=== PATIENT | female | born 1945 | race Caucasian/White ===

== ENCOUNTER 2019-12-20 10:28 | Emergency (ER) | payer MEDICARE, OTHER ==
[~2019-12-20] VITALS: Ht 165.1 cm; Wt 77.1 kg
[2019-12-20 10:42] VITALS: BP 159/88
--- NOTE | 2019-12-20 10:48 | NUR ---
Patient discharged to home in stable condition. Written and verbal after care instructions given. Patient verbalizes understanding of instruction.
== END 2019-12-20 10:47 | disposition home or self-care (01) ==
LOC: ER 10:28
DX: H60.92 Unspecified otitis externa, left ear (principal); I10 Essential (primary) hypertension; E11.9 Type 2 diabetes mellitus without complications

== ENCOUNTER 2020-01-01 07:21 | Emergency (ER) | payer MEDICARE, OTHER ==
[~2020-01-01] VITALS: Ht 165.1 cm; Wt 79.4 kg
[2020-01-01 07:22] VITALS: BP 164/57
[2020-01-01] MEDS ORDERED: AMOXICILLIN TRIHYDRATE 500 MG CAPSULE PO ONE (08:00)
[2020-01-01] MEDS ORDERED: HYDROCODONE/APAP 5/325MG TABLET PO ONE (08:00)
[2020-01-01] MEDS ORDERED: AMOXICILLIN TRIHYDRATE 250 MG CAPSULE ONE ×2 (08:04→08:06)
[2020-01-01] MEDS ORDERED: HYDROCODONE/APAP 5/325MG TABLET ONE (08:04)
--- NOTE | 2020-01-01 08:15 | NUR ---
Patient discharged to home in stable condition. Written and verbal after care instructions given. Patient verbalizes understanding of instruction.
== END 2020-01-01 08:16 | disposition home or self-care (01) ==
LOC: ER 07:22
DX: K08.89 Other specified disorders of teeth and supporting structures (principal); I10 Essential (primary) hypertension; E11.9 Type 2 diabetes mellitus without complications

== ENCOUNTER 2020-03-29 08:52 | Emergency (ER) | payer MEDICARE, OTHER ==
[~2020-03-29] VITALS: Ht 165.1 cm; Wt 78.0 kg
--- NOTE | 2020-03-29 09:10 | NUR ---
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 DR. SCHNEIDER AT BEDSIDE FOR EVAL.
[2020-03-29] MEDS ORDERED: LIDOCAINE HCL/MPF 1% 30 ML VIAL IJ ONE (09:16)
--- NOTE | 2020-03-29 09:51 | NUR ---
DR. SCHNEIDER AT BEDSIDE FOR I&D.
--- NOTE | 2020-03-29 10:25 | NUR ---
Patient discharged to home in stable condition. Written and verbal after care instructions given. Patient verbalizes understanding of instruction. Instructed wound care at home.
[2020-03-29 10:26] VITALS: BP 129/64
== END 2020-03-29 10:27 | disposition home or self-care (01) ==
LOC: ER 08:52
DX: L03.011 Cellulitis of right finger (principal); I10 Essential (primary) hypertension; E11.9 Type 2 diabetes mellitus without complications; W26.8XXA Contact with other sharp object(s), not elsewhere classified, initial encounter; Y93.E8 Activity, other personal hygiene; Y92.89 Other specified places as the place of occurrence of the external cause; Y99.8 Other external cause status
CPT/HCPCS: 10060; 99283; A6403; J3490

== ENCOUNTER 2020-04-02 16:14 | Emergency (ER) | payer MEDICARE, OTHER ==
[~2020-04-02] VITALS: Ht 165.1 cm; Wt 78.0 kg
[2020-04-02 16:18] VITALS: BP 131/77
--- NOTE | 2020-04-02 16:32 | NUR ---
Patient discharged to home in stable condition. Written and verbal after care instructions given. Patient verbalizes understanding of instruction.
== END 2020-04-02 16:31 | disposition home or self-care (01) ==
LOC: ER 16:20
DX: L03.011 Cellulitis of right finger (principal); I10 Essential (primary) hypertension; E11.9 Type 2 diabetes mellitus without complications